=== PATIENT | female | born 1945 | race Caucasian/White ===

== ENCOUNTER 2023-07-27 13:25 | Outpatient (CLI) | payer MEDICARE, BC | END 2023-07-27 13:26 | disposition home or self-care (01) | LOC: CSHWCC 13:25 | PROVIDERS: ATTEND Nurse Practitioner Family | DX: L89.219 Pressure ulcer of right hip, unspecified stage (principal); I73.9 Peripheral vascular disease, unspecified; D51.0 Vitamin B12 deficiency anemia due to intrinsic factor deficiency; I50.22 Chronic systolic (congestive) heart failure; E55.9 Vitamin D deficiency, unspecified | CPT/HCPCS: 11042 ==

== ENCOUNTER 2023-09-15 13:29 | Outpatient (CLI) | payer MEDICARE, BC | END 2023-09-15 13:30 | disposition home or self-care (01) | LOC: CSHWCC 13:29 | PROVIDERS: ATTEND Nurse Practitioner Family | DX: L89.214 Pressure ulcer of right hip, stage 4 (principal); I50.22 Chronic systolic (congestive) heart failure; I73.9 Peripheral vascular disease, unspecified; E55.9 Vitamin D deficiency, unspecified; D51.0 Vitamin B12 deficiency anemia due to intrinsic factor deficiency | CPT/HCPCS: 11042 ==

== ENCOUNTER 2023-09-25 15:03 | Outpatient (CLI) | payer MEDICARE, BC | END 2023-09-25 15:04 | disposition home or self-care (01) | LOC: CSHWCC 15:03 | PROVIDERS: ATTEND Nurse Practitioner Family | DX: L89.214 Pressure ulcer of right hip, stage 4 (principal); I73.9 Peripheral vascular disease, unspecified; E55.9 Vitamin D deficiency, unspecified; D51.0 Vitamin B12 deficiency anemia due to intrinsic factor deficiency; I50.22 Chronic systolic (congestive) heart failure | CPT/HCPCS: 11042; G0463; 99212 ==

== ENCOUNTER 2023-12-01 16:09 | Outpatient (CLI) | payer MEDICARE, BC | END 2023-12-01 16:10 | disposition home or self-care (01) | LOC: CSHWCC 16:09 | PROVIDERS: ATTEND Nurse Practitioner Family | DX: L89.214 Pressure ulcer of right hip, stage 4 (principal); I73.9 Peripheral vascular disease, unspecified; E55.9 Vitamin D deficiency, unspecified; D51.0 Vitamin B12 deficiency anemia due to intrinsic factor deficiency; I50.22 Chronic systolic (congestive) heart failure | CPT/HCPCS: 99212; G0463 ==

== ENCOUNTER 2023-12-16 15:14 | Outpatient (CLI) | payer MEDICARE, BC | END 2023-12-16 15:15 | disposition home or self-care (01) | LOC: CSHWCC 15:14 | PROVIDERS: ATTEND Nurse Practitioner Family | DX: L89.214 Pressure ulcer of right hip, stage 4 (principal); I73.9 Peripheral vascular disease, unspecified; E55.9 Vitamin D deficiency, unspecified; D51.0 Vitamin B12 deficiency anemia due to intrinsic factor deficiency; I50.22 Chronic systolic (congestive) heart failure | CPT/HCPCS: 97597 ==

== ENCOUNTER 2024-01-20 13:27 | Outpatient (CLI) | payer MEDICARE, BC | END 2024-01-20 13:28 | disposition home or self-care (01) | LOC: CSHWCC 13:27 | PROVIDERS: ATTEND Nurse Practitioner Family | DX: L89.214 Pressure ulcer of right hip, stage 4 (principal); I73.9 Peripheral vascular disease, unspecified; E55.9 Vitamin D deficiency, unspecified; D51.0 Vitamin B12 deficiency anemia due to intrinsic factor deficiency; I50.22 Chronic systolic (congestive) heart failure | CPT/HCPCS: 11042; G0463; 99213 ==

== ENCOUNTER 2024-02-03 14:05 | Outpatient (CLI) | payer MEDICARE, BC | END 2024-02-03 14:06 | disposition home or self-care (01) | LOC: CSHWCC 14:05 | PROVIDERS: ATTEND Nurse Practitioner Family | DX: I87.311 Chronic venous hypertension (idiopathic) with ulcer of right lower extremity (principal); L97.212 Non-pressure chronic ulcer of right calf with fat layer exposed; I73.9 Peripheral vascular disease, unspecified; E55.9 Vitamin D deficiency, unspecified; D51.0 Vitamin B12 deficiency anemia due to intrinsic factor deficiency; I50.22 Chronic systolic (congestive) heart failure | CPT/HCPCS: 11042 ==

== ENCOUNTER 2024-11-28 13:33 | Outpatient (CLI) | payer MEDICARE, BC | END 2024-11-28 13:34 | disposition home or self-care (01) | LOC: CSHWCC 13:33 | PROVIDERS: ATTEND Nurse Practitioner Family | DX: I87.331 Chronic venous hypertension (idiopathic) with ulcer and inflammation of right lower extremity (principal); L97.212 Non-pressure chronic ulcer of right calf with fat layer exposed; I73.9 Peripheral vascular disease, unspecified; I50.22 Chronic systolic (congestive) heart failure; D51.0 Vitamin B12 deficiency anemia due to intrinsic factor deficiency; E55.9 Vitamin D deficiency, unspecified | CPT/HCPCS: 99212; G0463 ==